=== PATIENT | male | born 1950 | race Caucasian/White ===

== ENCOUNTER 2016-08-22 13:14 | Outpatient (CLI) | payer MEDICARE, OTHER ==
[2016-08-22 13:50] LABS: BASOPHILS # (AUTO) 0.1 10^3/uL (0.0-0.1); BASOPHILS % (AUTO) 1.2 %; EOSINOPHILS # (AUTO) 0.1 10^3/uL (0.0-0.7); HCT - HEMATOCRIT 43.5 % (42.0-52.0); HGB - HEMOGLOBIN 15.1 g/dL (14.0-18.0); LYMPHOCYTES # (AUTO) 2.9 10^3/uL (1.5-3.5); LYMPHOCYTES % (AUTO) 42.1 %; MEAN CORPUSCULAR HEMOGLOBIN 31.1 pg (27.0-31.0); MEAN CORPUSCULAR HGB CONC 34.8 g/dL (32.0-36.0); MEAN CORPUSCULAR VOLUME 89.6 fL (80.0-94.0); MEAN PLATELET VOLUME 9.2 fL (7.4-11.4); MONOCYTES # (AUTO) 0.8 10^3/uL (0.0-1.0); MONOCYTES % (AUTO) 10.9 %; NEUTROPHILS # (AUTO) 3.1 10^3/uL (1.5-6.6); NEUTROPHILS % (AUTO) 43.8 %; RED BLOOD COUNT 4.85 10^6/uL (4.70-6.10); RED CELL DISTRIBUTION WIDTH 12.8 % (12.0-15.0)
== END 2016-08-22 13:15 | disposition home or self-care (01) ==
LOC: RT 13:14
PROVIDERS: ATTEND Surgery
DX: Z01.818 Encounter for other preprocedural examination (principal); Z86.010 Personal history of colon polyps; J43.9 Emphysema, unspecified
CPT/HCPCS: 36415; 85025; 93005

== ENCOUNTER 2016-08-24 06:52 | Day surgery (SDC) | payer MEDICARE, OTHER ==
[2016-08-24] MEDS ORDERED: LACTATED RINGERS 1,000 ML IV ONE ×2 (06:59→09:12)
[2016-08-24] MEDS ORDERED: ePHEDrine 50 MG/ML AMP IVP ONE (09:05)
[2016-08-24] MEDS ORDERED: METOCLOPRAMIDE 10 MG/2 ML VIAL IVP ONE (09:05)
[2016-08-24] MEDS ORDERED: PROPOFOL 200 MG/20 ML VIAL IVP ONE (09:05)
[2016-08-24] MEDS ORDERED: LIDOCAINE-MPF 2% 5 ML VIAL IM ONE (09:05)
--- NOTE | 2016-08-24 09:22 | POST OP PROGRESS NOTE ---
Subjective - General Procedure Date: 08/24/16 (outpt procedure) Post Op Days: 0 Procedure Performed: Colonoscopy with polypectomy (hot forceps) Surgery Impression Plan - FEN FEN: Preop dx: history of colon polyps Postop dx: 1. sigmoid and L colon diverticulosis; 2. colorectal polyp x1 @ 22cm Procedure: colonoscopy with polpyectomy (hot forceps) Surgeon: Dorothy Olsen MD Anesthesia: MAC Complications: none Procedure: After informed consent was obtained, the pt was taken to the OR and placed in the lateral decubitus position. A time-out was performed and he was sedated with Diprivan by the anesthesiologist. A rectal exam was then done which was normal. The colonoscope was then inserted and advanced under direct visualization. He was noted to have extensive large and medium sized diverticula throughout the sigmoid and left colon and a few scattered tics in the distal transverse colon. The scope was advanced to the cecum which was identified by landmarks. The scope was then slowly withdrawn so that the colon wall could be carefully inspected. A small polyp was noted at 22cm and was entirely removed with the hot biopsy forceps. No other polyps or abnormalities were noted. The scope was removed. The pt tolerated the procedure well and was sent to the recovery area in stable condition.
[2016-08-24 10:16] VITALS: BP 125/69
== END 2016-08-24 06:53 | disposition home or self-care (01) ==
LOC: SDS 06:52
PROVIDERS: ATTEND Surgery
PROC: 0DBE8ZX Excision of Large Intestine, Via Natural or Artificial Opening Endoscopic, Diagnostic (ICD-10-PCS; principal; 2016-08-24 08:30)
DX: K63.5 Polyp of colon (principal); K57.30 Diverticulosis of large intestine without perforation or abscess without bleeding; J45.909 Unspecified asthma, uncomplicated; J43.9 Emphysema, unspecified; I10 Essential (primary) hypertension; E78.5 Hyperlipidemia, unspecified; I25.10 Atherosclerotic heart disease of native coronary artery without angina pectoris; K21.9 Gastro-esophageal reflux disease without esophagitis; K44.9 Diaphragmatic hernia without obstruction or gangrene
CPT/HCPCS: 45384; J7120; 88305